=== PATIENT | male | born 2000 | race Two or more races ===

== ENCOUNTER 2018-01-19 15:29 | Emergency (ER) | payer OTHER ==
[~2018-01-19] VITALS: Ht 167.6 cm; Wt 61.2 kg
[2018-01-19 16:00] VITALS: BP 125/68
[2018-01-19] MEDS ORDERED: IBUPROFEN 800 MG TAB PO ONE (16:15)
== END 2018-01-19 16:27 | disposition home or self-care (01) ==
LOC: ER 15:33
DX: S60.221A Contusion of right hand, initial encounter (principal); W18.39XA Other fall on same level, initial encounter; Y93.89 Activity, other specified; Y92.89 Other specified places as the place of occurrence of the external cause; Y99.8 Other external cause status
CPT/HCPCS: 73130